=== PATIENT | female | born 1990 | race Caucasian/White ===

== ENCOUNTER 2023-05-03 11:55 | Emergency (ER) | payer BC, SELFPAY ==
[2023-05-03 12:01] VITALS: BP 110/74; PULSE 88; RESP 20; TEMP 36.6; O2SAT 100; BMI 32.7
[2023-05-03 12:25] LABS: Bilirubin Urine NEGATIVE (NEGATIVE); Blood Urine TRACE-I (NEGATIVE); Clarity Urine CLEAR (CLEAR); Color Urine DK. YELLOW (YELLOW); Glucose Urine UA NEGATIVE (NEGATIVE); Ketones Urine NEGATIVE (NEGATIVE); Leukocyte Esterase Urine NEGATIVE (NEGATIVE); Nitrite Urine NEGATIVE (NEGATIVE); Protein Urine TRACE mg/dL (NEG/TRACE); Specific Gravity Urine 1.025 (1.005-1.025); Urobilinogen Urine 0.2 EU/dL (0.2-1.0)
[2023-05-03 12:30] LABS: Urine Microscopic Indicated YES
--- NOTE | 2023-05-03 12:35 | ED_ITS ---
HPI - Abdominal Pain General Chief Complaint: Abdominal Pain Stated Complaint: ABD PAIN Time Seen by Provider: 05/03/23 12:35 Source: patient Mode of arrival: walk-in Limitations: no limitations History of Present Illness HPI narrative: Patient presents to emergency department complaining of abdominal pain. She states she had epigastric pain that radiated to her back this morning. She denies any nausea, vomiting, diarrhea, constipation. She denies any fever, chills. She denies any flank pain, hematuria, dysuria. She states the pain felt like he was in her back initially and then he came to the front. The patient took [id number] medication without any relief. She has no previous history of abdominal problems. She denies any history of ulcers. She denies any sore throat, or upper respiratory infection symptoms. She denies any trauma. She states she is late on her menses as she tried to take continuous control so that she wouldn't have. During her wedding which she has planned in the next couple of months. Related Data Home Medications Medication Instructions Recorded Confirmed levothyroxine 75 mcg tablet 75 mcg PO DAILY 05/03/23 05/03/23 (Euthyrox) Allergies Allergy/AdvReac Type Severity Reaction Status Date / Time Penicillins Allergy Intermediate Verified 05/03/23 12:04 Review of Systems ROS Status of ROS 10 or more systems reviewed and unremarkable except as noted in history and below Exam Narrative Exam Narrative: Nurses notes and vital signs reviewed and patient is not hypoxic. General: Nontoxic, Well-appearing and in no apparent distress. Skin: Warm, dry, no pallor noted. No Rash Head: Normocephalic, atraumatic. Neck: Supple, non-tender. Eye: Pupils are equal, round and EOMI. No scleral icterus. Ears, Nose, Mouth, and Throat: TM clear, no posterior oropharynx erythema or nasal mucosal hypertrophy, uvula is mid-line Oral mucosa is moist Cardiovascular: Regular Rate and Rhythm without murmur, gallop or rub. Respiratory: No accessory muscle use or respiratory distress. Lungs are clear to auscultation, no wheezing, rales or rhonchi Chest Wall: no tenderness Back: No midline thoracic or lumbar vertebral tenderness. No CVA tenderness Musculoskeletal: normal ROM, no calf or popliteal tenderness, no lower extremity edema/swelling GI: Abdomen is soft, non-distended. Normal bowel sounds. No masses appreciated. Mild left upper quadrant tenderness to palpation. No rebound, guarding, or rigidity noted. Neurological: A&O x4. No cranial nerve dysfunction observed. No truncal ataxia. Moves all extremities. Sensation intact. Psychiatric: Cooperative and interactive. Normal mood and affect. Constitutional Vital Signs, click to edit/add: Last Vital Signs Temp 98 F 05/03/23 12:01 Pulse 88 05/03/23 12:01 Resp 20 05/03/23 12:01 BP 110/74 05/03/23 12:01 Pulse Ox 100 05/03/23 12:01 O2 Del Method Room Air 05/03/23 12:01 Course Vital Signs Vital signs: Vital Signs Temperature 98 F 05/03/23 12:01 Pulse Rate 88 05/03/23 12:01 Respiratory Rate 20 05/03/23 12:01 Blood Pressure 110/74 05/03/23 12:01 Pulse Oximetry 100 05/03/23 12:01 Oxygen Delivery Method Room Air 05/03/23 12:01 Temperature 98 F 05/03/23 12:01 Pulse Rate 88 05/03/23 12:01 Respiratory Rate 05/03/23 12:01 Blood Pressure 110/74 05/03/23 12:01 Pulse Oximetry 100 05/03/23 12:01 Oxygen Delivery Method Room Air 05/03/23 12:01 MDM - Abdominal Pain MDM Narrative Medical decision making narrative: Patient was given a gastrointestinal cocktail in the emergency department which helped her symptoms. She states that she felt better and pain has resolved. Discussed all the results with the patient. The patient has not had any diarrhea. She will follow-up with primary care doctor and discussed the CT scan results. She is aware she might need further workup with a drag sawyer. Patient has not had any antibiotics recently. At this time there is no clinical indication for antibiotic treatment or steroids. At this time the patient is without objective evidence of an acute process requiring hospitalization or inpatient management. The patient has remained hemodynamically stable. No additional indication for emergent studies at this time. I answered all questions. Discussed discharge instructions including standard anticipatory guidance and what should prompt a return to the emergency department, including if they get worse are not getting better or develops any new or concerning symptoms. I've given them specific time frame in which to fol low-up, and who to follow-up with. The patient demonstrates understanding. Patient is nontoxic and stable for discharge with outpatient follow-up. This note was created with the assistance of a speech recognition program. Although the intention is to generate documents that actually reflects the content of the visit, no guarantees can be provided that every mistake has been identified and corrected by editing. Lab Data Attestation: I reviewed the patient's lab results. Labs: Lab Results 05/03/23 05/03/23 05/03/23 Range/Units 12:05 12:21 13:00 WBC 9.9 (4.0-11.0) 10^3/uL RBC 4.70 (4.20-5.40) 10^6/uL Hgb 13.9 (12.0-16.0) g/dL Hct 40.5 (36.0-48.0) % MCV 86.2 (81.0-99.0) fL MCH 29.6 (26.7-34.0) pg MCHC 34.3 (29.9-35.2) g/dL RDW 12.1 (11.0-15.0) % Plt Count 188 (150-450) 10^3/uL MPV 10.4 (9.5-13.5) fL Neut % (Auto) 84.3 H (43.0-75.0) % Lymph % (Auto) 8.0 L (20.5-60.0) % [place] % (Auto) 6.4 (1.7-12.0) % Eos % (Auto) 0.6 L (0.9-7.0) % Baso % (Auto) 0.3 (0.2-2.0) % Neut # (Auto) 8.3 H (1.4-6.5) 10^3/uL Lymph # (Auto) 0.8 L (1.2-3.8) 10^3/uL [place] # (Auto) 0.6 (0.3-0.8) 10^3/uL Eos # (Auto) 0.1 (0.0-0.7) 10^3/uL Baso # (Auto) 0.0 (0.0-0.1) 10^3/uL Abs Immat Gran (auto) 0.04 H (0.00-0.03) 10^3/uL Imm/Tot Granulo (auto) 0.4 (0.0-0.5) % Sodium 138 (136-145) mmol/L Potassium 4.3 (3.5-5.1) mmol/L Chloride 104 (98-107) mmol/L Carbon Dioxide 24.1 (21.0-32.0) mmol/L Anion Gap 14.2 BUN 11.0 (7.0-18.0) mg/dL Creatinine 0.70 (0.55-1.02) mg/dL Est GFR ( Amer) >60 (>=60) Est GFR (Non-Af Amer) >60 (>=60) BUN/Creatinine Ratio 15.7 Glucose 93 (74-106) mg/dL Lactate 0.9 (0.4-2.0) mmol/L Calcium 8.7 (8.5-10.1) mg/dL Total Bilirubin 0.6 (0.2-1.0) mg/dL AST 27 (15-37) U/L ALT 21 (14-59) U/L Alkaline Phosphatase 37 L (46-116) U/L Total Protein 7.7 (6.4-8.2) g/dL Albumin 3.8 (3.4-5.0) g/dL Globulin 3.9 g/dL Albumin/Globulin Ratio 1.0 Lipase 235.0 (73.0-393.0) U/L Urine Color Dk. yellow (YELLOW) Urine Clarity Clear (CLEAR) Urine pH 6.0 (5.0-9.0) Ur Specific [place] 1.025 (1.005-1.025) Urine Protein Trace (NEG/TRACE) mg/dL Urine Glucose (UA) Negative (NEGATIVE) mg/dL Urine Ketones Negative (NEGATIVE) mg/dL Urine Occult Blood Trace-i (NEGATIVE) Urine Nitrite Negative (NEGATIVE) Urine Bilirubin Negative (NEGATIVE) Urine Urobilinogen 0.2 (0.2-1.0) EU/dL Ur Leukocyte Esterase Negative (NEGATIVE) Urine RBC 2-5 A (0-2) #/HPF Urine WBC None seen (NONE SEEN) #/HPF Ur Squamous Epith Cells Few A (NONE/RARE) #/LPF Urine Crystals None seen (None Seen) #/HPF Urine Bacteria Trace A (NONE SEEN) #/HPF Urine Casts None seen (NONE SEEN) #/LPF Urine Mucus Small A (NONE SEEN) Ur Culture Indicated? No Urine HCG, Qual Negative (NEGATIVE) Discharge Plan Discharge Chief Complaint: Abdominal Pain Clinical Impression: Enteritis Patient Disposition: Home, Self-Care Time of Disposition Decision: 14:24 Condition: Good Mode of Transportation: Private Vehicle Prescriptions / Home Meds: No Action levothyroxine [Euthyrox] 75 mcg tablet 75 mcg PO DAILY Instructions: Enteritis (ED) Stand Alone Forms: Portal Instructions Referrals: ANGELITO GOODSON APRN [Physician] - 1 week Physician,Non-Staff, MD [Primary Care Provider] - 1 week
[2023-05-03 12:47] LABS: Bacteria Urine TRACE #/HPF (NONE SEEN); Mucus Urine SMALL (NONE SEEN); WBC Urine NONE SEEN #/HPF (NONE SEEN)
[2023-05-03 12:48] LABS: Cast Seen? NONE SEEN #/LPF (NONE SEEN); Crystals Seen? None Seen #/HPF (None Seen); Squamous Epithelial Cell Urine FEW #/LPF (NONE/RARE); Urine Culture Indicated NO
[2023-05-03 13:02] LABS: Basophils Percent Auto 0.3 % (0.2-2.0); Eosinophils Absolute Auto 0.1 10^3/uL (0.0-0.7); Eosinophils Percent Auto 0.6 % (0.9-7.0); Hematocrit 40.5 % (36.0-48.0); Hemoglobin 13.9 g/dL (12.0-16.0); Immature Granulocytes Abs Auto 0.04 10^3/uL (0.00-0.03); Immature Granulocytes Pct Auto 0.4 % (0.0-0.5); Lymphocytes Absolute Auto 0.8 10^3/uL (1.2-3.8); Mean Corpuscular HGB Conc 34.3 g/dL (29.9-35.2); Mean Corpuscular Hemoglobin 29.6 pg (26.7-34.0); Mean Corpuscular Volume 86.2 fL (81.0-99.0); Mean Platelet Volume 10.4 fL (9.5-13.5); Monocytes Absolute Auto 0.6 10^3/uL (0.3-0.8); Monocytes Percent Auto 6.4 % (1.7-12.0); Neutrophils Absolute Auto 8.3 10^3/uL (1.4-6.5); Neutrophils Percent Auto 84.3 % (43.0-75.0); Platelet Count 188 10^3/uL (150-450); Red Cell Distribution Width 12.1 % (11.0-15.0); White Blood Count 9.9 10^3/uL (4.0-11.0)
[2023-05-03 13:11] LABS: HCG Qualitative Urine* NEGATIVE (NEGATIVE)
[2023-05-03] MEDS: HYOSCYAMINE SULFATE 0.125 MG TAB.SUBL 0.25 MG PO (13:11)
[2023-05-03] MEDS: MAALOX (MAG HYDROX/ALUMINUM HYD/SIMETH) 30 ML ORAL.SUSP PO (13:11)
[2023-05-03 13:12] LABS: Alanine Aminotransferase 21 U/L (14-59); Albumin Level 3.8 g/dL (3.4-5.0); Alkaline Phosphatase 37 U/L (46-116); Anion Gap 14.2; Aspartate Amino Transferase 27 U/L (15-37); BUN Creatinine Ratio 15.7; Bilirubin Total 0.6 mg/dL (0.2-1.0); Calcium 8.7 mg/dL (8.5-10.1); Carbon Dioxide 24.1 mmol/L (21.0-32.0); Chloride 104 mmol/L (98-107); Estimated GFR (African America >60 (>=60); Estimated GFR (Non-African Ame >60 (>=60); Globulin 3.9 g/dL; Glucose 93 mg/dL (74-106); Potassium 4.3 mmol/L (3.5-5.1); Sodium 138 mmol/L (136-145); Total Protein 7.7 g/dL (6.4-8.2)
[2023-05-03 13:22] LABS: Lactate/Lactic Acid 0.9 mmol/L (0.4-2.0)
--- NOTE | 2023-05-03 13:28 | CT_ITS ---
[address] [address] Patient Name: RAYRAY MEDINA MRN: [id number] date: 1990 Sex: F Assigned Patient Location: ER Current Patient Location: Accession/Order Number: [id number] Exam Date: 05/03/2023 13:14 Report Date: 05/03/2023 14:02 At the request of: EDGAR HAIEL Procedure: CT abdomen pelvis w con EXAM: CT abdomen pelvis w con HISTORY: pain EXAM:CT abdomen pelvis w con TECHNIQUE: CT abdomen and pelvis. Helically acquired axial images of the abdomen and pelvis from the diaphragm to the iliac crest and the iliac crest to the symphysis pubis. Sagittal and coronal multiplanar reconstructions. The examination was performed 100 cc Omnipaque 350 IV. No oral contrast Dose reduction techniques were achieved by using automated exposure control and/or adjustment of mA and/or kV according to patient size and/or use of iterative reconstruction technique. COMPARISON: No comparison FINDINGS: LUNG BASES/LOWER CHEST: No acute findings LIVER: No definite abnormality of the liver is identified. No intrahepatic biliary dilatation. BILIARY TREE/GALLBLADDER: There is no CT evidence of acute cholecystitis. No evidence of intrahepatic biliary dilatation. PANCREAS:There is no definite abnormality. SPLEEN: Normal ADRENAL GLANDS: No evidence of an adrenal lesion. KIDNEYS: The kidneys have normal appearance. There is no evidence of a renal lesion. No evidence of hydronephrosis. VESSELS:The aorta is normal. No aneurysm. LYMPH NODES: No evidence of significantly enlarged lymph nodes. GI Tract: No bowel dilatation to suggest obstruction. There is fairly marked circumferential wall thickening measuring 8 mm and hyperenhancement involving the distal small bowel including a large portion of the ileum including the terminal ileum. The colon is unremarkable. The appendix is normal. Findings most consistent with enteritis. PERITONEUM: Mild stranding of the mesenteric fat adjacent to the small bowel loops within the pelvis with small volume of pelvic fluid measuring 25 mm in thickness. No free air. No rim-enhancing fluid collection or abscess PELVIS AND REPRODUCTIVE ORGANS: No abnormality within the visualized reproductive organs. BLADDER:The urinary bladder is unremarkable. ABDOMINAL WALL: Normal BONES: Degenerative change L5-S1 CT/CT abdomen pelvis w con IMPRESSION: Marked circumferential wall thickening and hyperenhancement involving the distal small bowel over a long segment including a large portion of the ileum including the terminal ileum with associated stranding of mesenteric fat with pelvic ascites. Findings most consistent with enteritis. Findings may be inflammatory, infectious or ischemic. Clinical correlation suggested. No rim-enhancing fluid collection or abscess. Electronically authenticated by: BETTIE CELIS Date: 05/03/2023 14:02
== END 2023-05-03 14:36 | disposition home or self-care (01) ==
PROVIDERS: Emergency Provider Emergency Medicine
DX: K52.9 Noninfective gastroenteritis and colitis, unspecified (principal); Z79.890 Hormone replacement therapy
CPT/HCPCS: 36415; 74177; 80053; 81001; 81003; 83605; 83690; 84703; 85025; 99284; Q9967